=== PATIENT | female | born 2000 | race Two or more races ===

== ENCOUNTER 2020-08-23 03:28 | Emergency (ER) | payer OTHER, MEDICAID ==
[~2020-08-23] VITALS: Ht 157.5 cm; Wt 54.4 kg
[2020-08-23 03:35] VITALS: BP 108/64
[2020-08-23] MEDS ORDERED: LIDOCAINE 1%-EPI 1:100,000 20 ML VIAL ONE (03:41)
[2020-08-23] MEDS ORDERED: TDAP [DIPH/PERTUSSIS/TET] 0.5 ML VIAL IM ONE ×2 (03:43→04:00)
[2020-08-23] MEDS ORDERED: LIDOCAINE 1%-EPI 1:100,000 20 ML VIAL TP ONE (04:00)
[2020-08-23] MEDS ORDERED: BACI/NEOM/POLY B OINT PKT 1 UDPKT PACKET TP ONE (04:30)
== END 2020-08-23 04:10 ==
LOC: ER 03:30
DX: S41.112A Laceration without foreign body of left upper arm, initial encounter (principal); Z02.89 Encounter for other administrative examinations; W26.0XXA Contact with knife, initial encounter; Y93.89 Activity, other specified; Y92.89 Other specified places as the place of occurrence of the external cause; Y99.8 Other external cause status
CPT/HCPCS: 12002; 90471; 90715; 99283; J3490